=== PATIENT | female | born 1970 | race African-American/Black ===

== ENCOUNTER → 2018-03-04 | Outpatient (CLI) | payer BC ==
[~2018-03-04] MED LIST: ALLEGRA ALLERG180 MG PO; ASPIRIN325 PO; EC-NAPROSYN375 MG; FLONASE 0.05%50 MCG NASAL; NITROGLYCERIN0.4 MG SUBLING
== END ==
LOC: RAD 14:55
DX: S92.912A Unspecified fracture of left toe(s), initial encounter for closed fracture (principal); X58.XXXA Exposure to other specified factors, initial encounter; Y93.89 Activity, other specified; Y92.89 Other specified places as the place of occurrence of the external cause; Y99.8 Other external cause status

== ENCOUNTER → 2021-10-31 | Outpatient (CLI) | payer OTHER | LOC: ULTRA 12:16 | PROVIDERS: ATTEND Family Medicine | DX: E04.1 Nontoxic single thyroid nodule (principal) ==

== ENCOUNTER → 2021-11-04 | Outpatient (CLI) | payer OTHER | LOC: ULTRA 09:21 | PROVIDERS: ATTEND Family Medicine | DX: R74.8 Abnormal levels of other serum enzymes (principal) ==

== ENCOUNTER → 2021-11-09 | Outpatient (CLI) | payer BC | LOC: ULTRA 12:06 | PROVIDERS: ATTEND Family Medicine | DX: R10.2 Pelvic and perineal pain (principal); D25.9 Leiomyoma of uterus, unspecified ==